=== PATIENT | female | born 1940 | race Two or more races ===

== ENCOUNTER 2016-11-18 19:58 | Emergency (ER) | payer OTHER ==
[2016-11-18 20:12] VITALS: RESP 14; TEMP 98.1; O2SAT 90
[2016-11-18] MEDS ORDERED: NS 500 ML IV ONE (20:22)
--- NOTE | 2016-11-18 20:29 | EDPHY ---
H & P Time Seen by Provider: 11/18/16 20:06 HPI/ROS: HPI High blood pressure, dizzy. 76-year-old female by private vehicle with her family. She is Chinese-speaking only as is her family. This history and sharp was obtained by using a performing arts road manager. She complains of 4 days of elevated blood pressures and which she describes as dizziness. She describes this as a sensation like her head is going to fall off when she goes from the sitting position or lying down to standing. She denies any problems walking. She has no associated headache, no loss of sensation or weakness in her extremities, no chest pain, no shortness of breath. ROS: Constitutional: No fever, no chills. As above Eyes: No discharge. No changes in vision. ENT: No sore throat. No nasal congestion or rhinorrhea. Respiratory: No cough. No shortness of breath. Cardiac: No chest pain, no palpitations. Gastrointestinal: No abdominal pain, no vomiting, no diarrhea. Genitourinary: No hematuria. No dysuria or increased frequency with urination. Musculoskeletal: No back pain. No neck pain. No myalgias or arthralgias. Skin: No rashes. Neurological: No headache. No focal weakness or altered sensation. Past medical history: Hypertension for which she takes losartan. She has been on this medication since August. She also has a history of diabetes but does not take insulin her medication for this. Primary care is through [facility]. Social history: Nonsmoker. Here with family. No alcohol. Physical Exam: General Appearance: Alert, no distress. This patient is responding to questions appropriately and in full sentences. This patient appears well- hydrated and well-nourished. Eyes: Pupils equal and round no pallor or injection. No lid edema, erythema or injection. No nystagmus. No photophobia. Respiratory: There are no retractions, lungs are clear to auscultation with good air movement bilaterally. Cardiovascular: Regular rate and rhythm. No murmur. Gastrointestinal: Obese habitus. Abdomen is soft and nontender, no masses, bowel sounds normal. No focal tenderness at McBurney's point. No Villa sign. Neurological: Motor sensory function is grossly intact. Cranial nerves are normal. Cerebellar function and gait is normal. Skin: Warm and dry, no rashes. Musculoskeletal: Neck is supple and nontender. No pain on flexion of the neck. Extremities are symmetrical. All joints range without pain or impingement. Psychiatric: No agitation. No depression. Database: EKG: EKG time is 8:30 p.m.; EKG shows a narrow complex normal sinus rhythm with a ventricular rate of 78. The PA, QRS, QT intervals are within normal limits. There are no ST-T wave changes indicative of ischemic or injury pattern. No evidence of right heart strain. No evidence of Brugada syndrome, WPW, hypertrophic cardiomyopathy. Interpreted by me. Imaging: Chest x-ray PA and lateral; bilateral linear opacities likely atelectasis. Patient's presentation in the emergency department is not consistent with pneumonia. Borderline cardiac enlargement without evidence of acute heart failure or pulmonary edema. Interpreted by me. Procedures: Emergency department course: IV placed. She was placed on a monitor. EKG and chest x-ray performed. She was started on IV normal saline with 500 cc to be given over 1 hour. 9:50 p.m., patient re-evaluated. Vital signs reviewed. Blood pressure 144 over 77, shelter monitor shows a narrow complex sinus rhythm. She is asymptomatic. She is up and ambulatory without symptoms. Repeat neurologic Assessment is nonfocal. Results of her workup, review of her vital signs and follow up plan was all discussed with a performing arts road manager. She feels comfortable going home with her family. I feel she is safe for discharge. I discussed follow-up with her primary care physician at [facility] to re-evaluated her antihypertensive medication regiment. She will do this. Return to emergency department precautions were thoroughly reviewed. All of her questions were answered. She was discharged in good condition with family. Differential Diagnosis: The differential diagnosis on this patient includes but is not limited to uncontrolled hypertension, hyperglycemia, peripheral vertigo. Central vertigo, CVA, DKA, acute coronary syndrome unlikely. This represents a partial list of diagnoses considered. These considerations are based on history, physical exam , past history, reassessment and diagnostic testing. Smoking Status: Never smoked Constitutional: Initial Vital Signs Temperature (C) 36.7 C 11/18/16 20:09 Heart Rate 84 11/18/16 20:09 Respiratory Rate 14 11/18/16 20:09 Blood Pressure 162/104 H 11/18/16 20:09 O2 Sat (%) 90 L 11/18/16 20:09 O2 Delivery Mode Room Air Allergies/Adverse Reactions: No Known Allergies Allergy (Unverified 11/18/16 20:08) Home Medications: Medication Instructions Recorded Losartan Potassium 11/18/16 Medical Decision Making - Diagnostics Imaging Results: Imaging Impressions Chest X-Ray 11/18/16 20:23 Impression: 1. Bilateral linear opacities are probably atelectasis with clinical correlation to exclude pneumonia. 2. Borderline cardiac enlargement may reflect compensated congestive heart failure. 3. See above report for additional findings. - Data Points Laboratory Results: Laboratory Results 11/18/16 20:45 11/18/16 20:45 11/18/16 11/18/16 20:45 20:45 WBC 6.88 10^3/uL 10^3/uL (3.80-9.50) RBC 3.90 10^6/uL L 10^6/uL (4.18-5.33) Hgb 11.5 g/dL L g/dL (12.6-16.3) Hct 35.4 % L % (38.0-47.0) MCV 90.8 fL fL (81.5-99.8) MCH 29.5 pg pg (27.9-34.1) MCHC 32.5 g/dL g/dL (32.4-36.7) RDW 14.0 % % (11.5-15.2) Plt Count 176 10^3/uL 10^3/uL (150-400) MPV 10.7 fL fL (8.7-11.7) Neut % (Auto) 57.1 % % (39.3-74.2) Lymph % (Auto) 29.1 % % (15.0-45.0) [place] % (Auto) 11.5 % % (4.5-13.0) Eos % (Auto) 1.7 % % (0.6-7.6) Baso % (Auto) 0.3 % % (0.3-1.7) Nucleat RBC Rel Count 0.0 % % (0.0-0.2) Absolute Neuts (auto) 3.93 10^3/uL 10^3/uL (1.70-6.50) Absolute Lymphs (auto) 2.00 10^3/uL 10^3/uL (1.00-3.00) Absolute Monos (auto) 0.79 10^3/uL 10^3/uL (0.30-0.80) Absolute Eos (auto) 0.12 10^3/uL 10^3/uL (0.03-0.40) Absolute Basos (auto) 0.02 10^3/uL 10^3/uL (0.02-0.10) Absolute Nucleated RBC 0.00 10^3/uL 10^3/uL (0-0.01) Immature Gran % 0.3 % % (0.0-1.1) Immature Gran # 0.02 10^3/uL 10^3/uL (0.00-0.10) Sodium 138 mEq/L mEq/L (134-144) Potassium 4.0 mEq/L mEq/L (3.5-5.2) Chloride 99 mEq/L mEq/L (97-110) Carbon Dioxide 29 mEq/l mEq/l (22-31) Anion Gap 10 mEq/L mEq/L (8-16) BUN 20 mg/dL mg/dL (7-23) Creatinine 0.5 mg/dL L mg/dL (0.6-1.0) Estimated GFR > 60 Glucose 140 mg/dL H mg/dL (70-100) Calcium 9.1 mg/dL mg/dL (8.5-10.4) Troponin I < 0.012 ng/mL ng/mL (0-0.034) Medications Given: Discontinued Medications Sodium Chloride (Ns) 500 mls @ 0 mls/hr IV ONCE ONE PRN Reason: As Directed Stop: 11/18/16 20:23 Last Admin: 11/18/16 20:25 Dose: 500 mls Departure - Departure Disposition: Home, Routine, Self-Care Clinical Impression: Uncontrolled hypertension, Dizzy spells Condition: Good Instructions: Chronic Hypertension (ED), Lightheadedness (ED) Additional Instructions: Read and follow provided instructions. Keep yourself well hydrated and get plenty of rest. Follow-up with your primary care physician in 1-2 days for re-evaluation and further management of your blood pressure. Take your blood pressure medication only as prescribed. Return to the emergency department for chest pain, shortness of breath, headache , fainting, vertigo or other serious concerns. 1. Jennifer y siga las instrucciones del doctor. Mantengase bowen hidratada y descanse lo suficiente. 2. Jaren ana paula linden de seguimiento con plasencia doctor en 1-2 ibrahim para el manejo de la presion de la gordon. 3. Delanson plasencia medicamento de la presion de la gordon solo a sandra se le receto. 4. Regrese a la marc de emergencia si tiene dolor de pecho, falta de respiracion , dolor de federico, si se desmaya, vertigo y otras preocupaciones serias. Referrals: CLINICA WAQAS,. [Primary Care Provider] - As per Instructions Print Language: Chinese
--- NOTE | 2016-11-18 20:32 | CPEKG ---
Heart Rate: 78 RR Interval: 769 P-R Interval: 152 QRSD Interval: 104 QT Interval: 408 QTC Interval: 465 P [place]: 63 QRS [place]: 3 T Wave [place]: 55 EKG Severity - NORMAL ECG - EKG Impression: SINUS RHYTHM Electronically Signed By: Marcelina Ford 18-Nov-2016 21:55:59
[2016-11-18 20:50] LABS: % IMMATURE GRANULYOCYTES 0.3 % (0.0-1.1); ABSOLUTE IMMATURE GRANULOCYTES 0.02 10^3/uL (0.00-0.10); ADD DIFF? NO; ADD MORPH? NO; ADD SCAN? NO; ATYPICAL LYMPHOCYTE FLAG 10 (0-99); FRAGMENT RBC FLAG 0 (0-99); HEMATOCRIT 35.4 % (38.0-47.0); HEMOGLOBIN 11.5 g/dL (12.6-16.3); LEFT SHIFT FLG 0 (0-99); LIPEMIA HEMOLYSIS FLAG 80 (0-99); MEAN CELL HEMOGLOBIN 29.5 pg (27.9-34.1); MEAN CELL HEMOGLOBIN CONCENTR. 32.5 g/dL (32.4-36.7); MEAN CELL VOLUME 90.8 fL (81.5-99.8); MEAN PLATELET VOLUME 10.7 fL (8.7-11.7); PLATELET CLUMPS FLAG 0 (0-99); PLATELET COUNT 176 10^3/uL (150-400)
[2016-11-18 21:07] LABS: ANION GAP 10 mEq/L (8-16); CALCIUM 9.1 mg/dL (8.5-10.4); CARBON DIOXIDE 29 mEq/l (22-31); CHLORIDE 99 mEq/L (97-110); CREATININE 0.5 mg/dL (0.6-1.0); GLOMERULAR FILTRATION RATE > 60; GLUCOSE 140 mg/dL (70-100); SODIUM 138 mEq/L (134-144)
[2016-11-18 21:14] LABS: TROPONIN I < 0.012 ng/mL (0-0.034)
[2016-11-18 22:07] VITALS: BP 144/77; PULSE 80
== END 2016-11-18 21:55 | disposition home or self-care (01) ==
LOC: CED 19:58
DX: R42 Dizziness and giddiness (principal); I10 Essential (primary) hypertension; E11.9 Type 2 diabetes mellitus without complications
CPT/HCPCS: 71020-PO; 80048-PO; 84484-PO; 85025-PO

== ENCOUNTER → 2017-08-13 | Outpatient (CLI) | payer OTHER | LOC: BMCIMAGING 09:59 | PROVIDERS: ATTEND Physician Assistant | DX: M25.861 Other specified joint disorders, right knee (principal); M25.862 Other specified joint disorders, left knee; M23.8X1 Other internal derangements of right knee; M23.8X2 Other internal derangements of left knee ==

== ENCOUNTER → 2017-11-12 | Outpatient (CLI) | payer OTHER | LOC: FIMAGING 08:08 | PROVIDERS: ATTEND Orthopaedic Surgery | DX: Z01.818 Encounter for other preprocedural examination (principal); M17.11 Unilateral primary osteoarthritis, right knee ==

== ENCOUNTER 2017-11-22 09:44 | Observation (INO) | payer OTHER ==
--- NOTE | 2017-11-22 06:29 | PDHPUP ---
History & Physical Update H&P update statement: This history and physical update is based on an assessment of the patient which was completed after admission or registration (within 24 hours), but prior to the surgery/procedure. H&P update: no change in patient's condition since H&P completed
--- NOTE | 2017-11-22 06:29 | PDIAF ---
- Diagnosis Diagnosis: right knee djd Code Status: Full Code - Medication Management Discharge Medications: Medications to Continue on Transfer Acetaminophen [Tylenol 325mg (*)] 325 - 650 mg PO Q6 PRN 11/01/17 [Last Taken Unknown] Aspirin EC [Aspirin EC 81 mg (*)] 81 mg PO DAILY 11/01/17 [Last Taken Unknown] Chlorthalidone [Chlorthalidone 25 mg (*)] 25 mg PO DAILY 11/01/17 [Last Taken Unknown] Lovastatin [Altoprev] 20 mg PO DAILY18 11/01/17 [Last Taken Unknown] B-12 11/08/17 [Last Taken Unknown] Calcium 11/08/17 [Last Taken Unknown] Discharge Medications: Refer to the Discharge Home Medication list for PRN reason. - Orders Services needed: Physical Therapy Diet Recommendation: no restrictions on diet Diet Texture: Regular Texture Diet Activity/Weight Bearing Restrictions: wbat. rom as abel. ice prn. may shower without bandage. no soaking. daily dressing change if dressing becomes saturated. seek attn for increasing pain, cp, sob, drainage, redness or other focal complaint. f/u at two weeks Additional Instructions: wbat rom as abel ice prn may shower without bandage no soaking daily dressing change if dressing becomes saturated seek attn for increasing pain, cp, sob, drainage, redness or other focal complaint f/u at two weeks TOTAL JOINT ARTHROPLASTY DISCHARGE INSTRUCTIONS 1. Your surgeon follows the [facility] protocol for reducing your risk of DVT (blood clots) following surgery. Medication will be ordered to prevent blood clots. A sudden increase in calf pain and/or swelling could indicate a blood clot in your leg. If this occurs, please call your surgeon or his/her assistant store manager trainee. An ultrasound of the leg may be necessary to diagnose a blood clot. If you have conditions that make you a higher risk for blood clots, your surgeon may use more aggressive ways to prevent them. Notify your surgeon if you think you are a high risk for blood clots. 2. Wear your white surgical stockings (AUGUST hose) for 2 weeks. This decreases your swelling and may help prevent blood clots. It is ok to remove AUGUST hose at night time to give your legs a break. 3. Swelling and bruising in the surgical leg is common. If you feel that it is excessive, please notify your surgeon. 4. Elevate your surgical leg with the ankle above the hip several times every day. Please keep the leg straight when you elevate by putting pillows under your foot. Do not put pillows under your knee. This will make being able to fully straighten more difficult. This is uncomfortable, but try to do it as much as possible. 5. For total knee replacements use compressive wrap on your knee for 3-5 days after surgery, then you can discontinue it. 6. Use a walker or crutches for 1-2 weeks. Progress your weight-bearing as tolerated. You may start to use a cane when you feel stable and safe. 7. You will receive physical therapy instructions in the hospital. Continue those exercises at home. There are additional exercises in the total joint booklet you were given before surgery. Outpatient physical therapy will begin 7- 10 days after surgery. Please schedule this in advance. 8. Use ice on your knee at least 3-5 times every day for 30 minutes. This helps reduce pain and swelling. Also use it at night before falling asleep. 9. Leave your surgical dressing in place for 2 weeks. Your dressing is water resistant, but not waterproof. Cover it with Saran Wrap or [id number] before showering. You may shower as soon as you feel safe entering a shower. If you notice bleeding from your incision 2 or 3 days after surgery, please notify your surgeon. 10. Due to narcotics, decreased activity and altered diet, most patients experience constipation after surgery. Use [id number]-[id number] stool softeners while you are on narcotics. 11. You may drive a car when you are comfortable bearing weight, have good muscular control of your leg and are off narcotics. This usually occurs 2-4 weeks after surgery, depending on which leg was operated on. 12. If there are questions not addressed here, please refer the [facility] book given for more information. If you still have questions, please contact your surgeon s office. 13. If you have a life-threatening emergency, please call 911 and go to the emergency room immediately. For non-life threatening emergencies, please call your physicians office for advice before going to the emergency room. - Follow Up Care Current Providers and Referrals: Vikas Drew MD [Primary Care Provider] - Carroll Matute MD [Medical Doctor] -
[2017-11-22] MEDS ORDERED: ACETAMINOPHEN 325 MG TAB PO ONE (10:07)
[2017-11-22] MEDS ORDERED: FAMOTIDINE 20 MG TAB PO ONE (10:07)
[2017-11-22] MEDS ORDERED: LR 1,000 ML IV ONE (10:08)
[2017-11-22] MEDS ORDERED: LIDOCAINE 1% 2 ML INJ ID PRN (10:08)
[2017-11-22] MEDS ORDERED: CALCIUM CHLORIDE 1 GM/10 ML INJ ONE ×2 (10:46→12:21)
[2017-11-22] MEDS ORDERED: THROMBIN (BOVINE) 5,000 UNIT VIAL TP ONE ×2 (10:46→12:21)
[2017-11-22] MEDS ORDERED: ceFAZolin 1 GM/5 ML SYR ONE ×2 (10:47→10:48)
[2017-11-22] MEDS ORDERED: TRANEXAMIC ACID 1,000 MG in NS 100 ML IV ONE (11:00)
[2017-11-22] MEDS ORDERED: ROPIVACAINE 0.2% 80 MG, EPINEPHrine 0.2 MG, KETOROLAC TROMETHAMINE 30 MG, morphINE 10 M... IU ONE (11:00)
[2017-11-22] MEDS ORDERED: ceFAZolin 2 GM/DEXTROSE 100 ML IV ONE (11:00)
--- NOTE | 2017-11-22 11:34 | PDANEPAE ---
ANE History of Present Illness 77 year old with right knee arthritis ANE Past Medical History - Cardiovascular History Hx Hypertension: Yes Hx Arrhythmias: No Hx Chest Pain: No Hx Coronary Artery / Peripheral Vascular Disease: No Hx CHF / Valvular Disease: No Hx Palpitations: No - Pulmonary History Hx COPD: No Hx Asthma/Reactive Airway Disease: No Hx Recent Upper Respiratory Infection: No Hx Oxygen in Use at Home: Yes O2 in Use at Home (L/minute): 2L Hx Sleep Apnea: No Sleep Apnea Screening Result - Last Documented: Positive Pulmonary History Comment: laser injury to right side - Neurologic History Hx Cerebrovascular Accident: No Hx Seizures: No Hx Dementia: No - Endocrine History Hx Diabetes: No - Renal History Hx Renal Disorders: No - Liver History Hx Hepatic Disorders: No - Neurological & Psychiatric Hx Hx Neurological and Psychiatric Disorders: No - Cancer History Hx Cancer: No - Congenital Disorder History Hx Congenital Disorders: No - GI History Hx Gastrointestinal Disorders: Yes Gastrointestinal History Comment: heartburn - Other Health History Other Health History: partials upper and lower - Surgical History Prior Surgeries: cholecystectomy. cataracts ANE Review of Systems Review of systems is: negative Review of Systems: - Exercise capacity METS (RN): 4 METS ANE Patient History - Allergies Allergies/Adverse Reactions: loratadine [From Claritin] Allergy (Verified 11/08/17 11:06) Unknown - Home Medications Home medications: home medication list seen and reviewed Home Medications: Acetaminophen [Tylenol 325mg (*)] 325 - 650 mg PO Q6 PRN 11/01/17 [Last Taken ] Aspirin EC [Aspirin EC 81 mg (*)] 81 mg PO DAILY 11/01/17 [Last Taken 1 Week Ago ~11/15/17] Chlorthalidone [Chlorthalidone 25 mg (*)] 25 mg PO DAILY 11/01/17 [Last Taken 6 Days Ago ~11/16/17] Lovastatin [Altoprev] 20 mg PO DAILY18 11/01/17 [Last Taken 6 Days Ago ~11/16/17 ] Calcium Carbonate [Oyster Shell Calcium 500 mg (*)] 500 mg PO DAILY 11/08/17 [ Last Taken 1 Week Ago ~11/15/17] Cyanocobalamin [Vitamin B12 (*)] 1,000 mcg PO DAILY 11/08/17 [Last Taken 1 Week Ago ~11/15/17] - NPO status NPO Status: no food or drink >8 hours NPO Since - Liquids (Date): 11/22/17 NPO Since - Liquids (Time): 06:00 NPO Since - Solids (Date): 11/21/17 NPO Since - Solids (Time): 18:00 - Anes Hx Anes Hx: no prior problems - Smoking Hx Smoking Status: Never smoked - Alcohol Use Alcohol Use: None - Family Anes Hx Family Hx Anesthesia Complications: none ANE Labs/Vital Signs - Vital Signs Blood Pressure: 139/85 Heart Rate: 62 Respiratory Rate: 18 O2 Sat (%): 91 Height: 155 cm Weight: 87.09 kg ANE Physical Exam - Airway Neck exam: FROM Mallampati Score: Class 2 Mouth exam: normal dental/mouth exam - Pulmonary Pulmonary: no respiratory distress, clear to auscultation - Cardiovascular Cardiovascular: regular rate and rhythym - ASA Status ASA Status: II ANE Anesthesia Plan Anesthesia Plan: spinal
[2017-11-22] MEDS ORDERED: MIDAZOLAM 2 MG/2 ML VIAL IVP ONE (11:35)
[2017-11-22] MEDS ORDERED: fentaNYL 100 MCG/2 ML INJ ONE (12:07)
[2017-11-22] MEDS ORDERED: PROPOFOL/EMULSION 500 MG/50 ML BOTTLE IV ONE (12:20)
[2017-11-22] MEDS ORDERED: TEMAZEPAM 15 MG CAP PO PRN (13:35)
[2017-11-22] MEDS ORDERED: PROMETHAZINE HCL 25 MG SUPPR PR PRN (13:35)
[2017-11-22] MEDS ORDERED: CYCLOBENZAPRINE 10 MG TAB PO PRN (13:35)
[2017-11-22] MEDS ORDERED: POLYETHYLENE GLYCOL 3350 17 GM PKT PO PRN (13:35)
[2017-11-22] MEDS ORDERED: LACTULOSE 20 GM/30 ML UDCUP PO PRN (13:35)
[2017-11-22] MEDS ORDERED: METOCLOPRAMIDE 10 MG/2 ML VIAL IVP PRN (13:35)
[2017-11-22] MEDS ORDERED: PROMETHAZINE HCL 25 MG/ML INJ IVP PRN ×2 (13:35→14:04)
[2017-11-22] MEDS ORDERED: traMADol 50 MG TAB PO PRN (13:35)
[2017-11-22] MEDS ORDERED: MAGNESIUM HYDROXIDE 30 ML UDCUP PO PRN (13:35)
[2017-11-22] MEDS ORDERED: DIPHENOXYLATE/ATROPINE LOMOTIL 1 TAB PO PRN (13:35)
[2017-11-22] MEDS ORDERED: ONDANSETRON DISINTEGRATING 4 MG TAB PO PRN (13:35)
[2017-11-22] MEDS ORDERED: ONDANSETRON 4 MG/2 ML VIAL IVP PRN ×2 (13:35→14:04)
[2017-11-22] MEDS ORDERED: diphenhydrAMINE 25 MG CAP PO PRN (13:35)
[2017-11-22] MEDS ORDERED: BISACODYL 10 MG SUPP PR PRN (13:35)
--- NOTE | 2017-11-22 13:35 | POSTOPPROG ---
Post Op Note Date of Operation: 11/22/17 Surgeon: Carroll Matute Contract Attorney: kurtis Anesthesiologist: warm Anesthesia: IV Sedation, Spinal Pre-op Diagnosis: right knee djd Post-op Diagnosis: same Indication: same Procedure: right tka Inf/Abcess present in the surg proc area at time of surgery?: No Depth: Deep Incisional (Fascial) EBL: 100-500 Complications: cemented patella
[2017-11-22] MEDS ORDERED: ROPIVACAINE HCL 150 MG/30 ML INJ ONE (13:45)
[2017-11-22] MEDS ORDERED: LR 1,000 ML IV SCH (14:00)
[2017-11-22] MEDS ORDERED: NALOXONE HCL 0.4 MG/ML INJ IVP PRN (14:04)
[2017-11-22] MEDS ORDERED: fentaNYL 100 MCG/2 ML INJ IVP PRN (14:04)
--- NOTE | 2017-11-22 14:04 | POSTANESTH ---
Post Anesthetic Evaluation Cardiovascular Status: Normal, Stable Respiratory Status: Normal, Stable Level of Consciousness/Mental Status: Can Participate in Eval, Alert and Oriented Pain Control: Adequate, Prn Tx Ordered Nausea/Vomiting Control: Adequate, Prn Tx Ordered Complications Possibly Related to Anesthesia: None Noted
[2017-11-22] MEDS: TRANEXAMIC ACID 650 MG TAB PO SCH ×2 (14:47→23:32)
[2017-11-22] MEDS: ACETAMINOPHEN 325 MG TAB PO SCH ×2 (17:03→23:32)
[2017-11-22] MEDS: oxyCODONE IR 5 MG TAB PO PRN (17:04)
[2017-11-22] MEDS ORDERED: PRAVASTATIN SODIUM 20 MG TAB PO SCH (18:00)
[2017-11-22] MEDS: ceFAZolin 2 GM/DEXTROSE 100 ML IV SCH (20:30)
[2017-11-22] MEDS: FAMOTIDINE 20 MG TAB PO SCH (20:31)
[2017-11-22] MEDS: ASPIRIN 325 MG TAB PO SCH (20:31)
[2017-11-22] MEDS: SENNOSIDES/DOCUSATE SODIUM TAB PO SCH (20:31)
[2017-11-23] MEDS: TRANEXAMIC ACID 650 MG TAB PO SCH (05:08)
[2017-11-23] MEDS: ACETAMINOPHEN 325 MG TAB PO SCH ×2 (05:08→11:25)
[2017-11-23] MEDS: ceFAZolin 2 GM/DEXTROSE 100 ML IV SCH (05:08)
--- NOTE | 2017-11-23 07:26 | PDIAF ---
- Diagnosis Diagnosis: right knee djd Code Status: Full Code - Medication Management Discharge Medications: Medications to Continue on Transfer Acetaminophen [Tylenol 325mg (*)] 325 - 650 mg PO Q6 PRN 11/01/17 [Last Taken ] Aspirin EC [Aspirin EC 81 mg (*)] 81 mg PO DAILY 11/01/17 [Last Taken 1 Week Ago ~11/15/17] Chlorthalidone [Chlorthalidone 25 mg (*)] 25 mg PO DAILY 11/01/17 [Last Taken 6 Days Ago ~11/16/17] Lovastatin [Altoprev] 20 mg PO DAILY18 11/01/17 [Last Taken 6 Days Ago ~11/16/17 ] Calcium Carbonate [Oyster Shell Calcium 500 mg (*)] 500 mg PO DAILY 11/08/17 [ Last Taken 1 Week Ago ~11/15/17] Cyanocobalamin [Vitamin B12 (*)] 1,000 mcg PO DAILY 11/08/17 [Last Taken 1 Week Ago ~11/15/17] Aspirin [Aspirin 325 mg (*)] 325 mg PO DAILY tab 11/23/17 [Last Taken Unknown] oxyCODONE IR [Oxycodone Ir (*)] 5 - 10 mg PO Q3HRS PRN #50 tab 11/23/17 [Last Taken Unknown] Discharge Medications: Refer to the Discharge Home Medication list for PRN reason. - Orders Services needed: Physical Therapy Diet Recommendation: no restrictions on diet Diet Texture: Regular Texture Diet Activity/Weight Bearing Restrictions: wbat. rom as abel. ice prn. may shower without bandage. no soaking. daily dressing change if dressing becomes saturated. seek attn for increasing pain, cp, sob, drainage, redness or other focal complaint. f/u at two weeks Additional Instructions: wbat rom as abel ice prn may shower without bandage no soaking daily dressing change if dressing becomes saturated seek attn for increasing pain, cp, sob, drainage, redness or other focal complaint f/u at two weeks TOTAL JOINT ARTHROPLASTY DISCHARGE INSTRUCTIONS 1. Your surgeon follows the [facility] protocol for reducing your risk of DVT (blood clots) following surgery. Medication will be ordered to prevent blood clots. A sudden increase in calf pain and/or swelling could indicate a blood clot in your leg. If this occurs, please call your surgeon or his/her photographer assistant. An ultrasound of the leg may be necessary to diagnose a blood clot. If you have conditions that make you a higher risk for blood clots, your surgeon may use more aggressive ways to prevent them. Notify your surgeon if you think you are a high risk for blood clots. 2. Wear your white surgical stockings (AUGUST hose) for 2 weeks. This decreases your swelling and may help prevent blood clots. It is ok to remove AUGUST hose at night time to give your legs a break. 3. Swelling and bruising in the surgical leg is common. If you feel that it is excessive, please notify your surgeon. 4. Elevate your surgical leg with the ankle above the hip several times every day. Please keep the leg straight when you elevate by putting pillows under your foot. Do not put pillows under your knee. This will make being able to fully straighten more difficult. This is uncomfortable, but try to do it as much as possible. 5. For total knee replacements use compressive wrap on your knee for 3-5 days after surgery, then you can discontinue it. 6. Use a walker or crutches for 1-2 weeks. Progress your weight-bearing as tolerated. You may start to use a cane when you feel stable and safe. 7. You will receive physical therapy instructions in the hospital. Continue those exercises at home. There are additional exercises in the total joint booklet you were given before surgery. Outpatient physical therapy will begin 7- 10 days after surgery. Please schedule this in advance. 8. Use ice on your knee at least 3-5 times every day for 30 minutes. This helps reduce pain and swelling. Also use it at night before falling asleep. 9. Leave your surgical dressing in place for 2 weeks. Your dressing is water resistant, but not waterproof. Cover it with Saran Wrap or Ocjsg-x-[id number] before showering. You may shower as soon as you feel safe entering a shower. If you notice bleeding from your incision 2 or 3 days after surgery, please notify your surgeon. 10. Due to narcotics, decreased activity and altered diet, most patients experience constipation after surgery. Use odtl-xuo-qrzshqy stool softeners while you are on narcotics. 11. You may drive a car when you are comfortable bearing weight, have good muscular control of your leg and are off narcotics. This usually occurs 2-4 weeks after surgery, depending on which leg was operated on. 12. If there are questions not addressed here, please refer the [facility] book given for more information. If you still have questions, please contact your surgeon s office. 13. If you have a life-threatening emergency, please call 911 and go to the emergency room immediately. For non-life threatening emergencies, please call your physicians office for advice before going to the emergency room. - Follow Up Care Current Providers and Referrals: Vikas Drew MD [Primary Care Provider] - Carroll Matute MD [Medical Doctor] -
--- NOTE | 2017-11-23 07:28 | SOAPPROG ---
SOAP Progress Note Assessment/Plan: Assessment: s/p tka Plan:d/c home stable pain control dvt precautions 11/23/17 07:26 Subjective: min pain no cp or sob no focal complaints Objective: Vital Signs Temp Pulse Resp BP Pulse Ox 36.6 C 58 L 16 136/77 H 100 11/23/17 05:10 11/23/17 05:10 11/23/17 05:10 11/23/17 05:10 11/23/17 05:10 Laboratory Results 11/23/17 04:41 11/22/17 11/23/17 11/24/17 05:59 05:59 05:59 Intake Total 2820 Output Total 1450 Balance 1370 dressing intact mod serrous drainage intact pf,df,ehl neg homans leatha xrays stable alignment, no fx or lucency ICD10 Worksheet Patient Problems: Problems Problem Status Onset Arthritis of knee Acute - ICD10 Problem Qualifiers (1) Arthritis of knee
[2017-11-23] MEDS ORDERED: CHLORTHALIDONE 25 MG TAB PO SCH (09:00)
[2017-11-23] MEDS: oxyCODONE IR 5 MG TAB PO PRN (09:06)
[2017-11-23] MEDS: SENNOSIDES/DOCUSATE SODIUM TAB PO SCH (09:06)
[2017-11-23] MEDS: ASPIRIN 325 MG TAB PO SCH (09:06)
[2017-11-23] MEDS: FAMOTIDINE 20 MG TAB PO SCH (09:07)
[2017-11-23 09:24] VITALS: BP 134/67
[2017-11-23] MEDS ORDERED: PNEUMOC 13-VAL CONJ-DIP CRM/PF 0.5 ML SYR IM ONE (10:06)
--- NOTE | 2017-11-23 11:40 | ASMTCMCOM ---
CM Note CM Note Notes: Pt medically stable for d/c with [facility] PT. Orders to be obtained via [facility]. [facility] alerted pt monolingual Danish speaking. Date Signed: 11/23/2017 11:39 AM Electronically Signed By:CONCEPCION Tucker
--- NOTE | 2017-11-23 14:36 | ASDISCHSUM ---
Discharge Information Plan Status:Home with Home Health Medically Cleared to Leave: Discharge Date:11/23/2017 11:55 AM CM D/C Disposition:Home Health Service ADT D/C Disposition:Home Health Service Projected Discharge Date:11/23/2017 11:00 AM Transportation at D/C: Discharge Delay Reason: Follow-Up Date:11/23/2017 11:00 AM Discharge Slot: Final Diagnosis: Placement Information Referral Type:*Home Health Care Services Referral ID:[id number] Provider Name:[facility] Care Address 1[address] [place] [address] Address 2: City:[place] Selection Factors: State:[place] Patient Contact Information Contact Name:HOLLY Relationship: Address:[address] Work Phone: City:[place] Phone: State/Zip Code:[place] [address] Email: Financial Information Financial Class:Medicare Advantage Plans Primary Plan Desc:[facility] ADVANTAGE PLANS Primary Plan Number:[id number] Secondary Plan Desc: Secondary Plan Number: Assessment Information BC CM Progress Note CM Note CM Note Notes: Pt medically stable for d/c with [facility] PT. Orders to be obtained via [employer]. [facility] alerted pt monolingual Maltese speaking. Date Signed: 11/23/2017 11:39 AM Electronically Signed By:CONCEPCION Tucker Intervention Information Intervention Type:*Incorrect Registration Date of Service:11/22/2017 03:15 PM Patient Type:Inpatient Staff Member:ERIN Rowan Susan Hours: Discipline: Severity: Comment:
== END 2017-11-23 11:55 | disposition home health service (06) ==
LOC: F3N 09:44 → INTOOBSV 09:44 → F3N 15:25
PROVIDERS: ADMIT Orthopaedic Surgery; ATTEND Orthopaedic Surgery
PROC: 0SRC0J9 Replacement of Right Knee Joint with Synthetic Substitute, Cemented, Open Approach (ICD-10-PCS; principal; 2017-11-22 12:00)
PROC: 3E0U0GB Introduction of Recombinant Bone Morphogenetic Protein into Joints, Open Approach (ICD-10-PCS; principal; 2017-11-22 12:00)
PROC: 8E0YXBZ Computer Assisted Procedure of Lower Extremity (ICD-10-PCS; principal; 2017-11-22 12:00)
DX: M17.11 Unilateral primary osteoarthritis, right knee (principal); I10 Essential (primary) hypertension; Z23 Encounter for immunization
CPT/HCPCS: 0232T; 20985; 27447; 73560; 88311; 90670; 97110; 97161; 97165; 97535; C1713; C1776; G0009; G0378; G8978; G8979; G8980; G8987; G8988; G8989; J0171; J0690; J1885; J2250; J2270; J2704; J2795; J3010

== ENCOUNTER → 2018-01-04 | Outpatient (CLI) | payer OTHER | LOC: BMCIMAGING 10:37 | PROVIDERS: ATTEND Physician Assistant | DX: Z09 Encounter for follow-up examination after completed treatment for conditions other than malignant neoplasm (principal); Z96.651 Presence of right artificial knee joint ==

== ENCOUNTER 2018-04-27 08:23 | Emergency (ER) | payer OTHER ==
--- NOTE | 2018-04-27 09:09 | EDPHY ---
H & P Time Seen by Provider: 04/27/18 08:37 HPI/ROS: CHIEF COMPLAINT: Low back pain History by patient HISTORY OF PRESENT ILLNESS: 77-year-old woman with history of knee replacement 5 months ago presents complaining of 1 month of progressive low back pain which is somewhat worse on the left. Patient states paced is worse when she stands or walks and better when she lays down. It has been getting worse over time and this morning was almost unbearable. She took 2 Tylenol which made slightly better but did not relieve it. It radiates somewhat down both legs but not below the knees and does not feel like an electric shock. She denies any associated weakness but states that due to the pain when she walks she has to stop and rest frequently. She denies any loss of bowel or bladder control. She denies any urinary symptoms other than a waking in the night to urinate. She denies any fevers, chills or weight loss. She denies any trauma. Patient denies any abdominal pain. REVIEW OF SYSTEMS: As in HPI, and all other systems reviewed and are negative Smoking Status: Never smoked Physical Exam: General Appearance: Alert, obese, nontoxic-appearing. Head: Normocephalic, atraumatic Eyes: Pupils equal and round, no pallor or injection. ENT, Mouth: Mucous membranes moist. Neck: No bony tenderness, full range of motion Gastrointestinal: Abdomen is soft and nontender, no masses, bowel sounds normal. Neurological: Awake, alert and oriented x 3, no pronator drift, no pronator drift, DTRs 2+ and equal bilaterally in knees and ankles, left ipsilateral pain with straight leg raise, no pain with right leg raise, strength is 5/5 and equal bilaterally in lower extremities, distal sensation is intact, ambulates w / difficulty due to pain. Back: Upper back kyphosis, no T-spine or upper lumbar spine tenderness, Positive lower sacral bony tenderness, positive left lumbar paraspinous muscle tenderness greater than right, no CVA tenderness Skin: Warm and dry, no rashes. Musculoskeletal: Neck is supple, FROM, nontender. Extremities: symmetrical, full range of motion. DP pulses are 2+ and equal bilaterally Psychiatric: Patient has normal affect, there is no agitation. Constitutional: Initial Vital Signs Temperature (C) 36.8 C 04/27/18 08:35 Heart Rate 62 04/27/18 08:35 Respiratory Rate 18 04/27/18 08:35 Blood Pressure 138/74 H 04/27/18 08:35 O2 Sat (%) 93 04/27/18 08:35 O2 Delivery Mode Room Air Allergies/Adverse Reactions: loratadine Allergy (Unknown, Verified 04/27/18 08:38) Unknown Home Medications: Medication Instructions Recorded Acetaminophen [Tylenol 325mg (*)] 325 - 650 mg PO Q6 PRN 11/01/17 Aspirin EC [Aspirin EC 81 mg (*)] 81 mg PO DAILY 11/01/17 Chlorthalidone [Chlorthalidone 25 25 mg PO DAILY 11/01/17 mg (*)] Calcium Carbonate [Oyster Shell 500 mg PO DAILY 11/08/17 Calcium 500 mg (*)] Cyanocobalamin [Vitamin B12 (*)] 1,000 mcg PO DAILY 11/08/17 Lovastatin 01/22/18 Lidocaine [Lidoderm] 1 each TP DAILY PRN #30 adh..patch 04/27/18 MDM/Departure - [facility] ED Course/Re-evaluation: 77-year-old woman presents with low back pain and sacral/coccyx tenderness with normal neurologic exam. While in x-ray the patient remember that she did in fact have a fall landing on her tailbone in the kitchen about 2 months ago before the symptoms started. X-ray showed some degenerative disease but no evidence of acute fracture or bony lesion. Patient was feeling somewhat better was ambulatory here. I recommending treatment with topical lidocaine patches and increasing her dose of Tylenol. Given that her symptoms have been ongoing since the fall if they do not resolve in the next week or so she may need further evaluation including MRI so I recommend she schedule follow-up appointment with her primary care physician next week. I discussed this with the patient and her family with an hospital chaplain. They understand agreeable to this plan. - Depart Disposition: Home, Routine, Self-Care Clinical Impression: Contusion of coccyx Qualifiers: Encounter type: initial encounter Qualified Code(s): S30.0XXA - Contusion of lower back and pelvis, initial encounter Low back pain Qualifiers: Chronicity: acute Back pain laterality: midline Sciatica presence: without sciatica Qualified Code(s): M54.5 - Low back pain Condition: Good Instructions: Coccyx Injury (ED), Back Pain (ED) Additional Instructions: You were seen by Dr. Mahsa Treviño today. Your x-rays showed no evidence of fracture today. Continue to take Tylenol. I recommend 975 to a 1000 mg (3 pills of 325 mg or 2 pills of 500 mg) every 6 hr. Try also topical lidocaine patches. Please follow up with her primary care physician at [facility] in 7-10 days for re-evaluation. Return for any worsening or new concerns, including but not limited to fever, inability to walk, uncontrolled pain, loss of control of bowel or bladder. Prescriptions: Lidocaine [Lidoderm] 1 each TP DAILY PRN #30 adh..patch PRN Reason: pain Referrals: NONE *PRIMARY CARE P,. [Primary Care Provider] - As per Instructions Print Language: Turkish
[2018-04-27 10:15] VITALS: BP 109/54
== END 2018-04-27 10:13 | disposition home or self-care (01) ==
LOC: CED 08:23
DX: M54.5 Low back pain (principal); S30.0XXD Contusion of lower back and pelvis, subsequent encounter
CPT/HCPCS: 72100-PO; 72220-PO